=== PATIENT | male | born 1960 | race African-American/Black ===

== ENCOUNTER → 2016-09-20 | Outpatient (CLI) | payer BC ==
[~2016-09-20] VITALS: Ht 170.2 cm; Wt 94.8 kg
[~2016-09-20] MED LIST: 24HOUR ALLERGY10 MG PO; MICROZIDE12.5 M1 PO; MULTIPLE VITAM1 EACH PO
== END | disposition home or self-care (01) ==
LOC: AMB 12:30
DX: Z12.11 Encounter for screening for malignant neoplasm of colon (principal); D12.3 Benign neoplasm of transverse colon; K62.1 Rectal polyp
CPT/HCPCS: 80048; 88305